=== PATIENT | male | born 2000 | race Caucasian/White ===

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

== ENCOUNTER 2020-03-10 08:58 | Emergency (ER) | payer OTHER ==
[~2020-03-10] VITALS: Ht 182.9 cm; Wt 72.6 kg
[2020-03-10 09:10] VITALS: BP 122/57
--- NOTE | 2020-03-10 09:23 | NUR ---
PT C/O LUMP ON RIGHT FOREARM WITH PAIN AND TENDERNESS ON PALPATION FOR MONTHS, WORSENED 3 DAYS AGO. PAIN EXACERBATED BY LIFTING HEAVY WEIGHT. 1.5X1.5 CM MOBILE, ROUND, AND SLIGHT FIRM MASS PALPATED ON PT'S FOREARM. DENIES TRAUMA. PT DENIES ANY FEVER, CP, SOB, OR COUGH AT THIS TIME; PATIENT STATES PAIN OF 2/10 AT THIS TIME; VSS; PATIENT POSITIONED FOR COMFORT; HOB ELEVATED; BEDRAILS UP X2; BED DOWN. ER MD MADE AWARE OF PT STATUS.
--- NOTE | 2020-03-10 10:00 | NUR ---
Dr. Pleitez is evaluating patient at bedside.
[2020-03-10 10:21] VITALS: BP 115/55
== END 2020-03-10 10:21 | disposition home or self-care (01) ==
LOC: MED 08:58
DX: D17.21 Benign lipomatous neoplasm of skin and subcutaneous tissue of right arm (principal)
CPT/HCPCS: 99282

== ENCOUNTER 2020-08-07 18:53 | Emergency (ER) | payer OTHER ==
[~2020-08-07] VITALS: Ht 182.9 cm; Wt 72.6 kg
[2020-08-07 18:59] VITALS: BP 134/81
[2020-08-07 19:00] VITALS: BP 134/81
== END 2020-08-07 19:48 | disposition home or self-care (01) ==
LOC: MED 18:53
DX: J30.9 Allergic rhinitis, unspecified (principal); Z20.828 Contact with and (suspected) exposure to other viral communicable diseases
CPT/HCPCS: 99283; U0003

== ENCOUNTER 2020-09-26 08:31 | Emergency (ER) | payer OTHER ==
[~2020-09-26] VITALS: Ht 182.9 cm; Wt 73.5 kg
[2020-09-26 08:42] VITALS: BP 129/67
--- NOTE | 2020-09-26 09:00 | NUR ---
Dr. Beltrán evaluating pt at bedside
--- NOTE | 2020-09-26 09:01 | NUR ---
Pt c/o Left Shoulder pain since 4-5 days ago s/p lifting boxes, worsened by certain movements. Reduced ROM on the left shoulder w/o any erythema, edema, or deformity noticed. Pt denies hx of fx or dislocation on the left shoulder.
[2020-09-26] MEDS ORDERED: IBUPROFEN 400 MG TAB PO ONE (09:05)
[2020-09-26] MEDS ORDERED: ACETAMINOPHEN 325 MG TAB PO ONE (09:05)
--- NOTE | 2020-09-26 09:09 | NUR ---
applied sling to left arm without any issues
[2020-09-26 09:34] VITALS: BP 119/65
--- NOTE | 2020-09-26 09:34 | NUR ---
Patient discharged with v/s stable. Written and verbal after care instructions given and explained. Patient alert, oriented and verbalized understanding of instructions. Ambulatory with steady gait. All questions addressed prior to discharge. ID band removed. Patient advised to follow up with PMD. Rx of FLEXERIL & NAPROSYN given. Patient educated on indication of medication including possible reaction and side effects. Opportunity to ask questions provided and answered.
== END 2020-09-26 09:34 | disposition home or self-care (01) ==
LOC: MED 08:31
DX: S43.402A Unspecified sprain of left shoulder joint, initial encounter (principal); X50.0XXA Overexertion from strenuous movement or load, initial encounter; Y93.89 Activity, other specified; Y92.89 Other specified places as the place of occurrence of the external cause; Y99.8 Other external cause status
CPT/HCPCS: 99283

== ENCOUNTER 2020-10-03 13:22 | Emergency (ER) | payer OTHER ==
[~2020-10-03] VITALS: Ht 185.4 cm; Wt 73.9 kg
[2020-10-03 13:28] VITALS: BP 140/87
--- NOTE | 2020-10-03 13:32 | NUR ---
AMB TO BED 05
--- NOTE | 2020-10-03 14:28 | NUR ---
PT SEEN AND D/C BY DR. MACK, NO NURSING CARE GIVEN.
--- NOTE | 2020-10-03 14:28 | NUR ---
Patient discharged with v/s stable. Written and verbal after care instructions given and explained. Patient verbalized understanding. Ambulatory with steady gait. All questions addressed prior to discharge. Advised to follow up with PMD. EXCUSE FROM WORK/ACTIVITY NOTE GIVEN TO PT.
[2020-10-03 14:31] VITALS: BP 140/87
== END 2020-10-03 14:28 | disposition home or self-care (01) ==
LOC: MED 13:22
DX: S43.402A Unspecified sprain of left shoulder joint, initial encounter (principal); X50.0XXA Overexertion from strenuous movement or load, initial encounter; Y93.89 Activity, other specified; Y92.89 Other specified places as the place of occurrence of the external cause; Y99.8 Other external cause status
CPT/HCPCS: 99281

== ENCOUNTER 2020-11-04 10:11 | Emergency (ER) | payer OTHER ==
[~2020-11-04] VITALS: Ht 182.9 cm; Wt 74.8 kg
[2020-11-04 10:19] VITALS: BP 128/83
[2020-11-04] MEDS ORDERED: ACETAMINOPHEN EXTRA STRENGTH 500 MG TAB PO ONE (10:25)
--- NOTE | 2020-11-04 10:25 | NUR ---
Patient in the overflow tent awaiting MSE.
--- NOTE | 2020-11-04 10:32 | NUR ---
20/M BIB SELF C/O FEVER, COUGH, SORE THROAT,RUNNY NOSE X 4 DAYS, DIZZINESS X YESTERDAY. PMH: DENIES Addendum: 11/04/20 at 1036 by [email or web address] Amendment undone in EDM - 11/04/20 at 1042 by [employer] Patient discharged BY DR MANJARREZ with v/s stable. Written and verbal after care instructions given and explained. Patient verbalized understanding. Ambulatory with steady gait. All questions addressed prior to discharge. Advised to follow up with PMD.
--- NOTE | 2020-11-04 11:43 | NUR ---
COVID ROSSANA SWAB DONE.
[2020-11-04 12:56] VITALS: BP 118/78
--- NOTE | 2020-11-04 12:56 | NUR ---
Patient discharged with v/s stable. Written and verbal after care instructions given and explained. Patient verbalized understanding. Ambulatory with steady gait. All questions addressed prior to discharge. Advised to follow up with PMD.
== END 2020-11-04 12:56 | disposition home or self-care (01) ==
LOC: MED 10:11
DX: R05 Cough (principal); R09.81 Nasal congestion; Z20.828 Contact with and (suspected) exposure to other viral communicable diseases
CPT/HCPCS: 99283

== ENCOUNTER 2020-11-11 09:50 | Emergency (ER) | payer OTHER ==
[~2020-11-11] VITALS: Ht 182.9 cm; Wt 72.6 kg
[2020-11-11 10:01] VITALS: BP 129/89
--- NOTE | 2020-11-11 10:06 | NUR ---
TENT1
--- NOTE | 2020-11-11 10:09 | NUR ---
20/M BIB SELF C/O DRY COUGHX4 DAYS, LOSS OF TASTE/SMELLX 3 DAYS. COVID TESTED 11/04/20: NEGATIVE.
--- NOTE | 2020-11-11 12:40 | NUR ---
COVID SWAB COLLECTED.
[2020-11-11 12:46] VITALS: BP 129/89
== END 2020-11-11 12:43 | disposition home or self-care (01) ==
LOC: MED 09:50
DX: U07.1 COVID-19 (principal)
CPT/HCPCS: 99283; U0003

== ENCOUNTER 2021-09-02 10:00 | Emergency (ER) | payer OTHER ==
[~2021-09-02] VITALS: Ht 185.4 cm; Wt 73.9 kg
[2021-09-02 10:07] VITALS: BP 136/80
--- NOTE | 2021-09-02 10:50 | NUR ---
21 Y/O MALE BIBS FOR C/O DULL 01/19 NON RADIATING HARTLEY AND BODY ACHE. DENIES N/V/D. DENIES CP AT THIS TIME. NON PRODUCTIVE COUGH NOTED. RESP EVEN AND UNLABORED. VSS. PT ON RA. ABLE TO MAKE ALL NEEDS KNOWN. PT NOTED WITH A CLEAR THIN DISCHARGE FROM BILAT NARES. ALLERGIES: DENIES PMHX: DENIES HOME MEDS: DENIES
--- NOTE | 2021-09-02 10:55 | NUR ---
SPECIMENS FOR FLU/COVID TAKEN AND WALKED DOWN TO LAB BY LARRY COUCH
--- NOTE | 2021-09-02 11:19 | NUR ---
Followed up with Karthik from lab and swabs will be running now. DARIO made aware
[2021-09-02] MEDS ORDERED: IBUP-2213 PO (11:33)
[2021-09-02] MEDS ORDERED: BENZ1LOZ98 PO (11:33)
[2021-09-02 12:05] VITALS: BP 128/74
--- NOTE | 2021-09-02 12:05 | NUR ---
Patient discharged with v/s stable. Written and verbal after care instructions given and explained. Patient alert, oriented and verbalized understanding of instructions. Ambulatory with steady gait. All questions addressed prior to discharge. ID band removed. Patient advised to follow up with PMD. Rx of benzocaine/menthol and ibuprofen given. Patient educated on indication of medication including possible reaction and side effects. Opportunity to ask questions provided and answered.
== END 2021-09-02 12:05 | disposition home or self-care (01) ==
LOC: MED 10:00
DX: B34.9 Viral infection, unspecified (principal); Z20.822 Contact with and (suspected) exposure to COVID-19; J02.8 Acute pharyngitis due to other specified organisms; B97.89 Other viral agents as the cause of diseases classified elsewhere; R51.9 Headache, unspecified; R09.89 Other specified symptoms and signs involving the circulatory and respiratory systems
CPT/HCPCS: 87804; 99283

== ENCOUNTER 2023-11-05 07:56 | Emergency (ER) | payer OTHER ==
[~2023-11-05] VITALS: Ht 175.3 cm; Wt 85.7 kg
[~2023-11-05 07:56] MED LIST: BENZ-300 PO; IBUP-2213 PO
[2023-11-05 08:08] VITALS: BP 123/70; PULSE 105; RESP 15; TEMP 98.7; O2SAT 97
[2023-11-05] MEDS ORDERED: KETOROLAC 30 MG/ML VIAL IM ONE (08:20)
[2023-11-05] MEDS ORDERED: ACETAMINOPHEN EXTRA STRENGTH 500 MG TAB PO ONE (08:20)
[2023-11-05] MEDS ORDERED: ONDANSETRON 4 MG ODT PO ONE (08:25)
[2023-11-05] MEDS ORDERED: ONDA-188 PO (08:58)
[2023-11-05 09:11] VITALS: BP 120/80; PULSE 78; RESP 16; TEMP 98; O2SAT 99
[2023-11-05 09:49] LABS: FLU A ANTIGEN negative (NEGATIVE); FLU B ANTIGEN negative (NEGATIVE)
== END 2023-11-05 09:11 | disposition home or self-care (01) ==
LOC: MED 07:56
DX: J06.9 Acute upper respiratory infection, unspecified (principal); Z20.822 Contact with and (suspected) exposure to COVID-19; R11.0 Nausea; Z79.899 Other long term (current) drug therapy; Z79.1 Long term (current) use of non-steroidal anti-inflammatories (NSAID)
CPT/HCPCS: 71045; 87426; 87804; 96372; 99284; J1885; Q0092; Q0162